=== PATIENT | male | born 1995 | race Caucasian/White ===

== ENCOUNTER 2019-01-14 10:08 | Inpatient (IN) | payer OTHER ==
[~2019-01-14] VITALS: Ht 185.4 cm; Wt 71.6 kg
[~2019-01-14 10:08] MED LIST: no meds
[2019-01-14] MEDS ORDERED: LACTATED RINGER'S 1,000 ML IV STA (10:44)
[2019-01-14] MEDS ORDERED: IBUPROFEN 600 MG TAB PO ONE (11:00)
[2019-01-14] MEDS ORDERED: CLINDAMYCIN 900 MG/D5W (PMX) 50 ML IVPB SCH (11:00)
[2019-01-14] MEDS ORDERED: VANCOMYCIN 1 GM (PMX) 250 ML IVPB ONE (11:00)
[2019-01-14] MEDS ORDERED: HYDROCODONE/APAP (5/325) TAB PO PRN (13:30)
[2019-01-14] MEDS ORDERED: VANCOMYCIN IV PER PHARMACY XX SCH (13:30)
[2019-01-14] MEDS ORDERED: NACL 0.9% 3 ML SYG IV SCH (13:30)
[2019-01-14] MEDS ORDERED: KETOROLAC 15 MG INJ IV STA (13:37)
--- NOTE | 2019-01-14 13:41 | ERD ---
ER Documentation Chief Complaint Chief Complaint various skin lesions/itchiness ; swelling/cellulitis @ right leg; unkempt HPI This is a 23-year-old man with an active history of injected heroin abuse and methamphetamine abuse presenting with multiple skin ulcers as well as redness, pain, swelling to the lower extremities bilaterally. Patient states his leg pain and redness began a few days ago after he aggressively scratched his legs. He denies injecting in his lower extremities. Patient denies fevers or chills, no vomiting or diarrhea, no chest pain or shortness of breath ROS All systems reviewed and are negative except as per history of present illness. Medications Home Meds No Active Prescriptions or Reported Meds Allergies Allergies: Coded Allergies: avocado (Verified Allergy, Unknown, THROAT SWELLING SHORT OF BREATH, 01/14/19) peanut (Verified Allergy, Unknown, THROAT SWELLING SHORT OF BREATH, 01/14/19) PMhx/Soc Drug abuse History of Surgery: No Hx Neurological Disorder: No Hx Respiratory Disorders: No Hx Cardiac Disorders: No Hx Psychiatric Problems: No Hx Miscellaneous Medical Probl: Yes (Heroin use) Hx Alcohol Use: Yes (Occassionally) Hx Substance Use: Yes (Heroin) Hx Tobacco Use: Yes (Half pack per day) Smoking Status: Current every day smoker FmHx Family History: No diabetes Physical Exam Vitals Vital Signs Date Temp Pulse Resp B/P (MAP) Pulse Ox O2 O2 Flow FiO2 Time Delivery Rate 01/14/19 76 20 100/52 100 Room Air 13:13 (68) 01/14/19 107 20 112/64 100 Room Air 11:19 (80) 01/14/19 99.4 11:03 01/14/19 99.4 126 24 122/66 100 10:13 (84) Physical Exam Const: Well-developed will nourished man, appears intoxicated, afebrile HEENT: Excoriated skin to the bridge of the nose, no cervical spine deformity, no Kernig sign Resp: Clear to auscultation bilaterally Cardio: Tachycardic and regular Skin: Multiple superficial skin ulcerations to the upper extremities bilaterally. Patient also has indurated erythematous skin to the anterior lower extremities bilaterally concerning for cellulitis Ext: Distal pulses equal bilateral, 1+ pitting edema in the lower extremities bilaterally, calves symmetrical Neur: Awake and alert x3, no focal deficits or facial asymmetry Psych: Normal Mood and Affect Result Diagram: 01/14/19 1055 01/14/19 1055 Results 24 hrs Laboratory Tests Test 01/14/19 10:55 White Blood Count 11.5 10^3/ul Red Blood Count 3.85 10^6/ul Hemoglobin 10.5 g/dl Hematocrit 33.6 % Mean Corpuscular Volume 87.3 fl Mean Corpuscular Hemoglobin 27.3 pg Mean Corpuscular Hemoglobin Concent 31.3 g/dl Red Cell Distribution Width 13.7 % Platelet Count 322 10^3/UL Mean Platelet Volume 8.9 fl Immature Granulocytes % 0.300 % Neutrophils % 82.1 % Lymphocytes % 12.2 % Monocytes % 4.4 % Eosinophils % 0.7 % Basophils % 0.3 % Nucleated Red Blood Cells % 0.0 /100WBC Immature Granulocytes # 0.040 10^3/ul Neutrophils # 9.4 10^3/ul Lymphocytes # 1.4 10^3/ul Monocytes # 0.5 10^3/ul Eosinophils # 0.1 10^3/ul Basophils # 0.0 10^3/ul Nucleated Red Blood Cells # 0.0 10^3/ul Sodium Level 140 mmol/L Potassium Level 3.7 mmol/L Chloride Level 104 mmol/L Carbon Dioxide Level 27 mmol/L Anion Gap 9 Blood Urea Nitrogen 11 mg/dl Creatinine 0.81 mg/dl Est Glomerular Filtrat Rate mL/min > 60 mL/min Glucose Level 93 mg/dl Calcium Level 9.2 mg/dl Current Medications Medications Dose Sig/Marilin Start Time Status Last (Trade) Ordered Route PRN Stop Time Admin Dose Reason Admin Vancomycin 250 ml @ ONCE ONCE 01/14/19 DC 01/14/19 HCl 125 mls/hr IVPB 11:00 12:03 01/14/19 12:59 Clindamycin 50 ml @ 50 ONCE IVPB 01/14/19 DC 01/14/19 HCl/ mls/hr 11:00 11:04 Dextrose 01/14/19 11:59 Ibuprofen 600 mg ONCE ONCE 01/14/19 DC 01/14/19 (Motrin) PO 11:00 11:03 01/14/19 11:01 Lactated 1,000 ml @ Q1H STAT 01/14/19 DC 01/14/19 Ringer's 1,000 mls/hr IV 10:44 11:03 01/14/19 11:43 IV Flush 3 ml PER 01/14/19 (NS 3 ml) PROTOCOL IV 13:30 1 tab Q6H PRN 01/14/19 Acetaminophen PO .MOD PAIN 13:30 / 4-6 Hydrocodone Bitart ([place] (5/325)) Vancomycin VANCOMYCIN PER 01/14/19 UNV HCl (Vanco PER PHARMACY PROTOCOL XX 13:30 Iv Per Pharmacy) Procedures/MDM IV line was established patient was placed on counseling services manager rhythm strip revealed a sinus rhythm at about narrow complex tachycardia at 110 bpm with upright P and T waves. Patient was afebrile I administered 1 L LR IV, ibuprofen 600 mg p.o., clindamycin 900 mg IV, vancomycin 1 g IV. CBC and electrolytes were unremarkable. Patient will be admitted to [facility] for continued IV antibiotic therapy Departure Diagnosis: Primary Impression: Drug abuse Additional Impressions: Bilateral lower leg cellulitis Formication Condition: EDDIE Zhou MD Jan 14, 2019 13:41
[2019-01-14] MEDS ORDERED: KETOROLAC 15 MG INJ IV PRN (14:00)
[2019-01-14] MEDS ORDERED: VANCOMYCIN 500 MG (PMX) 100 ML IVPB ONE (14:00)
[2019-01-14] MEDS ORDERED: IOHEXOL 300MG/ML 150 ML BTL ONE (14:03)
[2019-01-14] MEDS ORDERED: SOD CHLORIDE 0.9% 100 ML ONE (14:03)
--- NOTE | 2019-01-14 15:05 | CONS ---
Consultation Date/Type/Reason Admit Date/Time Initial Consult Date Date/Time of Note DATE: 01/14/19 TIME: 15:04 24 HR Interval Summary Free Text/Dictation 23 y/o M with hx of IV drug abuse and Exam/Review of Systems Exam Vitals Vital Signs Date Temp Pulse Resp B/P (MAP) Pulse Ox O2 O2 Flow FiO2 Time Delivery Rate 01/14/19 99.0 79 18 110/63 100 Room Air 14:52 (79) Results Result Diagram: 01/14/19 1055 01/14/19 1055 Results 24hrs Laboratory Tests Test 01/14/19 10:44 01/14/19 10:55 C-Reactive Protein 6.1 H Procalcitonin 1.28 H White Blood Count 11.5 H Red Blood Count 3.85 L Hemoglobin 10.5 L Hematocrit 33.6 L Mean Corpuscular Volume 87.3 Mean Corpuscular Hemoglobin 27.3 L Mean Corpuscular Hemoglobin Concent 31.3 L Red Cell Distribution Width 13.7 Platelet Count 322 Mean Platelet Volume 8.9 Immature Granulocytes % 0.300 Neutrophils % 82.1 H Lymphocytes % 12.2 L Monocytes % 4.4 Eosinophils % 0.7 Basophils % 0.3 Nucleated Red Blood Cells % 0.0 Immature Granulocytes # 0.040 H Neutrophils # 9.4 H Lymphocytes # 1.4 Monocytes # 0.5 Eosinophils # 0.1 Basophils # 0.0 Nucleated Red Blood Cells # 0.0 Sodium Level 140 Potassium Level 3.7 Chloride Level 104 Carbon Dioxide Level 27 Anion Gap 9 Blood Urea Nitrogen 11 Creatinine 0.81 Est Glomerular Filtrat Rate mL/min > 60 Glucose Level 93 Calcium Level 9.2 Medications Medication Current Medications IV Flush (NS 3 ml) 3 ml PER PROTOCOL IV ; Start 01/14/19 at 13:30 Acetaminophen/ Hydrocodone Bitart ([place] (5/325)) 1 tab Q6H PRN PO .MOD PAIN 4- 6; Start 01/14/19 at 13:30 Vancomycin HCl (Vanco Iv Per Pharmacy) VANCOMYCIN PER PHARMACY PER PROTOCOL XX ; Start 01/14/19 at 13:30 Methadone HCl (Methadone) 5 mg Q8H PO ; Start 01/14/19 at 14:00 Ketorolac Tromethamine (Toradol) 15 mg Q6H PRN IV PAIN; Start 01/14/19 at 14:00; Stop 01/17/19 at 13:59 Vancomycin/Sodium Chloride 250 ml @ 83.333 mls/ hr Q8H IVPB ; Start 01/14/19 at 23:00 NE SHERWOOD DPM Jan 14, 2019 15:05
--- NOTE | 2019-01-14 15:24 | CONS ---
Assessment/Plan Assessment/Plan Assessment/Plan (Daily) B/l lower extremity non pressure ulcerations B/l lower extremity cellulitis Concern for abscess formation IV drug abuser with possible skin popping lesions Homelessness Plan Patient is being admitted for further monitoring. CT ordered of bilateral lower extremity by primary team and awaiting result to rule out any abscess formations. Patient will likely need an operative debridement. Patient will need wound cultures, arterial studies, and wound care. Patient would benefit from case management involvement due to homelessness and IV drug abuse. Continue with IV abx and provided nursing instructions with dressings. Will continue to monitor while in house. Consultation Date/Type/Reason Admit Date/Time Date/Time of Note DATE: 01/14/19 TIME: 15:12 Hx of Present Illness 23 y/o M with hx of IV drug abuse and homelessness presents to the ER with multiple ulceration sites to his bilateral lower extremities with erythema predominantly to his lower legs. Patient states the issues started a several days ago. He reports that he was scratching them too much and they became ulcerated. Patient denies injected to his lower extremities. Patient also states that he last used heroin this morning and injected to his right arm. Reports pain to the shins and wound sites. Denies additional constitutional symptoms. ROS negative except for HPI Past Medical History IV drug abuse, homeless Home Meds No Active Prescriptions or Reported Meds Medications Current Medications IV Flush (NS 3 ml) 3 ml PER PROTOCOL IV ; Start 01/14/19 at 13:30 Acetaminophen/ Hydrocodone Bitart ([place] (5/325)) 1 tab Q6H PRN PO .MOD PAIN 4- 6; Start 01/14/19 at 13:30 Vancomycin HCl (Vanco Iv Per Pharmacy) VANCOMYCIN PER PHARMACY PER PROTOCOL XX ; Start 01/14/19 at 13:30 Methadone HCl (Methadone) 5 mg Q8H PO ; Start 01/14/19 at 14:00 Ketorolac Tromethamine (Toradol) 15 mg Q6H PRN IV PAIN; Start 01/14/19 at 14:00; Stop 01/17/19 at 13:59 Vancomycin/Sodium Chloride 250 ml @ 83.333 mls/ hr Q8H IVPB ; Start 01/14/19 at 23:00 Allergies: Coded Allergies: avocado (Verified Allergy, Unknown, THROAT SWELLING SHORT OF BREATH, 01/14/19) peanut (Verified Allergy, Unknown, THROAT SWELLING SHORT OF BREATH, 01/14/19) Past Surgical History nose surgery Family History Significant Family History: no pertinent family hx Social History Alcohol Use: occasionally Smoking Status: Current every day smoker Drug Use: heroin Exam/Review of Systems Exam Vitals Vital Signs Date Temp Pulse Resp B/P (MAP) Pulse Ox O2 O2 Flow FiO2 Time Delivery Rate 01/14/19 99.0 79 18 110/63 100 Room Air 14:52 (79) Exam DP pulses palpable bilateral, unable to palpate PT pulses Protective sensations intact 2+ pitting edema b/l lower extremity Multiple open lesion sites appear to be skin popping lesions Diffuse erythema noted to bilateral lower legs Pain on palpation to the wound sites of bilateral lower legs Right anterior leg ulcer 1.5 x 1.5 x 0.3cm fibrotic wound bed, there is some purulent drainage, unable to probe to bone Left anterior leg ulcer 2 x 1.5 x 0.3cm fibrotic wound bed, there is some purulent drainage, unable to probe to bone Results Result Diagram: 01/14/19 1055 01/14/19 1055 Results 24hrs Laboratory Tests Test 01/14/19 10:44 01/14/19 10:55 C-Reactive Protein 6.1 H Procalcitonin 1.28 H White Blood Count 11.5 H Red Blood Count 3.85 L Hemoglobin 10.5 L Hematocrit 33.6 L Mean Corpuscular Volume 87.3 Mean Corpuscular Hemoglobin 27.3 L Mean Corpuscular Hemoglobin Concent 31.3 L Red Cell Distribution Width 13.7 Platelet Count 322 Mean Platelet Volume 8.9 Immature Granulocytes % 0.300 Neutrophils % 82.1 H Lymphocytes % 12.2 L Monocytes % 4.4 Eosinophils % 0.7 Basophils % 0.3 Nucleated Red Blood Cells % 0.0 Immature Granulocytes # 0.040 H Neutrophils # 9.4 H Lymphocytes # 1.4 Monocytes # 0.5 Eosinophils # 0.1 Basophils # 0.0 Nucleated Red Blood Cells # 0.0 Sodium Level 140 Potassium Level 3.7 Chloride Level 104 Carbon Dioxide Level 27 Anion Gap 9 Blood Urea Nitrogen 11 Creatinine 0.81 Est Glomerular Filtrat Rate mL/min > 60 Glucose Level 93 Calcium Level 9.2 Medications Medication Current Medications IV Flush (NS 3 ml) 3 ml PER PROTOCOL IV ; Start 01/14/19 at 13:30 Acetaminophen/ Hydrocodone Bitart ([place] (5/325)) 1 tab Q6H PRN PO .MOD PAIN 4- 6; Start 01/14/19 at 13:30 Vancomycin HCl (Vanco Iv Per Pharmacy) VANCOMYCIN PER PHARMACY PER PROTOCOL XX ; Start 01/14/19 at 13:30 Methadone HCl (Methadone) 5 mg Q8H PO ; Start 01/14/19 at 14:00 Ketorolac Tromethamine (Toradol) 15 mg Q6H PRN IV PAIN; Start 01/14/19 at 14:00; Stop 01/17/19 at 13:59 Vancomycin/Sodium Chloride 250 ml @ 83.333 mls/ hr Q8H IVPB ; Start 01/14/19 at 23:00 NE SHERWOOD DPM Jan 14, 2019 15:23
--- NOTE | 2019-01-14 15:36 | HP ---
Date/Time of Note Date/Time of Note DATE: 01/14/19 TIME: 15:33 Assessment/Plan VTE Prophylaxis SCD applied (from Nsg): Yes Pharmacological prophylaxis: heparin Lines/Catheters IV Catheter Type (from Nrsg): Saline Lock Assessment/Plan Hospital Course Somewhat uncomfortable appearing mildly unkept Calm pleasant appropriate Regular rate and rhythm Breathing comfortably with clear lungs Skin exam is notable for various eschars throughout his arms and legs. There is a large area of cellulitic change with open pus drainage on his bilateral anterior shins which are warm and erythematous and quite painful to touch Assessment and plan: This is a 23-year-old male with a history of opiate use disorder and IV drug use who presents with bilateral cellulitis of his legs with concern for underlying abscess -We will perform imaging of his legs to rule out abscess or osteomyelitis -We will continue vancomycin IV and consult infectious diseases and podiatry if needed Opiate use disorder: -We will start on methadone maintenance therapy and uptitrate as needed -Check HIV and hepatitis serologies Result Diagram: 01/14/19 1055 01/14/19 1055 Results 24hrs Laboratory Tests Test 01/14/19 10:44 01/14/19 10:55 Erythrocyte Sedimentation Rate 75 H C-Reactive Protein 6.1 H Procalcitonin 1.28 H White Blood Count 11.5 H Red Blood Count 3.85 L Hemoglobin 10.5 L Hematocrit 33.6 L Mean Corpuscular Volume 87.3 Mean Corpuscular Hemoglobin 27.3 L Mean Corpuscular Hemoglobin Concent 31.3 L Red Cell Distribution Width 13.7 Platelet Count 322 Mean Platelet Volume 8.9 Immature Granulocytes % 0.300 Neutrophils % 82.1 H Lymphocytes % 12.2 L Monocytes % 4.4 Eosinophils % 0.7 Basophils % 0.3 Nucleated Red Blood Cells % 0.0 Immature Granulocytes # 0.040 H Neutrophils # 9.4 H Lymphocytes # 1.4 Monocytes # 0.5 Eosinophils # 0.1 Basophils # 0.0 Nucleated Red Blood Cells # 0.0 Sodium Level 140 Potassium Level 3.7 Chloride Level 104 Carbon Dioxide Level 27 Anion Gap 9 Blood Urea Nitrogen 11 Creatinine 0.81 Est Glomerular Filtrat Rate mL/min > 60 Glucose Level 93 Calcium Level 9.2 HPI/ROS Admit Date/Time Admit Date/Time Hx of Present Illness Is a 23-year-old male with opiate use disorder who presents with painful bilateral lower extremities Patient is notably covered and what appear to be skin injection sites though he stresses that he only shoots up into his upper extremities and never his lower extremities. Regardless over the previous days he has developed clear infections of his bilateral legs mostly involving his shins. Very painful matos its him from walking. Both sites on both shins are expressing pus ROS Constitutional: no complaints, improved Eyes: no complaints ENT: no complaints Respiratory: no complaints Cardiovascular: no complaints Gastrointestinal: no complaints Genitourinary: no complaints Musculoskeletal: no complaints Skin: no complaints Neurologic: no complaints Endocrine: no complaints Lymphatic: no complaints Psychological: no complaints, nl mood/affect Immunologic: no complaints PMH/Family/Social Past Medical History Medical History: no pertinent history Medications Current Medications IV Flush (NS 3 ml) 3 ml PER PROTOCOL IV ; Start 01/14/19 at 13:30 Acetaminophen/ Hydrocodone Bitart ([place] (5/325)) 1 tab Q6H PRN PO .MOD PAIN 4- 6; Start 01/14/19 at 13:30 Vancomycin HCl (Vanco Iv Per Pharmacy) VANCOMYCIN PER PHARMACY PER PROTOCOL XX ; Start 01/14/19 at 13:30 Methadone HCl (Methadone) 5 mg Q8H PO ; Start 01/14/19 at 14:00 Ketorolac Tromethamine (Toradol) 15 mg Q6H PRN IV PAIN; Start 01/14/19 at 14:00; Stop 01/17/19 at 13:59 Vancomycin/Sodium Chloride 250 ml @ 83.333 mls/ hr Q8H IVPB ; Start 01/14/19 at 23:00 Coded Allergies: avocado (Verified Allergy, Unknown, THROAT SWELLING SHORT OF BREATH, 01/14/19) peanut (Verified Allergy, Unknown, THROAT SWELLING SHORT OF BREATH, 01/14/19) Past Surgical History Past Surgical Hx: no surgical history Family History Significant Family History: no pertinent family hx Social History Alcohol Use: none Smoking Status: Current every day smoker Drug Use: none, heroin Exam/Review of Systems Vital Signs Vitals Vital Signs Date Temp Pulse Resp B/P (MAP) Pulse Ox O2 O2 Flow FiO2 Time Delivery Rate 01/14/19 99.0 79 18 110/63 100 Room Air 14:52 (79) GUY ANGLIN MD Jan 14, 2019 15:36
[2019-01-14 16:20] VITALS: Ht 185.4 cm; Wt 71.6 kg
[2019-01-14] MEDS: CEFEPIME 1GM/50 ML (PMX) 50 ML IVPB SCH (16:44)
[2019-01-14] MEDS: METHADONE 5 MG TAB PO SCH ×2 (16:44→21:05)
[2019-01-14 16:52] VITALS: BP 107/61; PULSE 97
--- NOTE | 2019-01-14 17:17 | CONS ---
DATE OF ADMISSION: 01/14/2019 DATE OF CONSULTATION: 01/14/2019 TYPE OF CONSULTATION: Infectious disease. REASON FOR CONSULTATION: Antibiotic management. HISTORY OF PRESENT ILLNESS: Vahid Howard is a 23-year-old male with an active history of inj ecting heroin and heroin abuse as well as methamphetamine abuse. He presents now with multiple skin ulcers as well as redness, pain, swelling to the lower extremities bilaterally. Patient states his l eg and pain and redness began a few days ago after he aggressively scratched his legs. He denies inj ecting into his lower extremities. The patient denies fever or chills. He has no chest pain or shor tness of breath. PAST MEDICAL HISTORY: Essentially as outlined. FAMILY HISTORY: Noncontributory. SOCIAL HISTORY: He drinks alcohol occasionally. He abuses heroin and methamphetamine. He smokes murry lf pack of cigarettes per day, currently an everyday smoker. ANCILLARY LABORATORY DATA: On admission, his white count is 11.5, H and H of 10.5 and 33.6, platelet count of 322,000, he has 82% neutrophils. BUN and creatinine 11/0.81, glucose random 93. IMPRESSION AND PLAN: The patient was seen by Dr. Mcallister in the Emergency Room. He notes bilatera l lower extremity non-pressure ulcerations bilateral lower extremity cellulitis, concern for abscess formation, IV drug abuser with possible skin popping lesions and homelessness. A CT scan of the lowe r extremities was ordered. Bilateral anterior predominant soft tissue edema with overlying skin thic kening suggesting cellulitis. No discrete abscess was detected. No evidence of soft tissue gas. No acute osseous abnormality. The patient was started on vancomycin. He received some clindamycin, bu t at this point, he is on vancomycin alone. He was seen by the hospitalist, Dr. Lewis he will chec k an HIV and hepatitis serologies, started methadone maintenance therapy. We are going to add ceftri axone to his regimen. I will dictate my findings to Dr. Mcallister and to the hospitalists. We may a dd cefepime for better coverage. Dictated By: TONIO MOYER MD, JD/NTS Conf#: [id number] DID#: [id number] CC: GUY LEWIS MD;*EndCC*
[2019-01-14 20:00] VITALS: BP 117/66; PULSE 79; RESP 18
[2019-01-14] MEDS ORDERED: PENDING SANTYL ORDER FOR WOUND CARE XX PRN (22:00)
[2019-01-14] MEDS: VANCOMYCIN 1.25 GM/NS 250 ML 250 ML IVPB SCH (23:29)
[2019-01-15] VITALS (11 sets, daily range): BP systolic 112–142; BP diastolic 58–105; PULSE 50–89; RESP 16–23
[2019-01-15] MEDS: CEFEPIME 1GM/50 ML (PMX) 50 ML IVPB SCH ×3 (02:28→21:19)
[2019-01-15] MEDS: METHADONE 5 MG TAB PO SCH ×3 (05:56→21:23)
[2019-01-15] MEDS: VANCOMYCIN 1.25 GM/NS 250 ML 250 ML IVPB SCH ×3 (05:57→22:29)
[2019-01-15] MEDS ORDERED: PROPOFOL 60 ML ONE (08:17)
[2019-01-15] MEDS ORDERED: MIDAZOLAM 1 MG/ML 2 ML INJ ONE (08:17)
[2019-01-15] MEDS ORDERED: LIDOCAINE 2% (SDV) 5 ML INJ ONE (08:18)
[2019-01-15] MEDS ORDERED: GLYCOPYRROLATE 0.4 MG INJ ONE (08:18)
[2019-01-15] MEDS ORDERED: KETAMINE (50 MG/ML) 10 ML VIAL ONE (08:18)
[2019-01-15] MEDS ORDERED: POLYMYXIN/BACITRACIN 1L IRRIG ONE (08:36)
--- NOTE | 2019-01-15 09:10 | PREAC ---
Date/Time of Note Date/Time of Note DATE: 01/15/19 TIME: 09:07 Anesthesia Eval and Record Evaluation Time Pre-Procedure Interview DATE: 01/15/19 TIME: 09:07 Age 23 Sex male NPO: 8 hrs Preoperative diagnosis bilateral cellulitis of legs Planned procedure bilateral lower extremity debridement Past Medical History Past Medical History: Includes (Heroin and meth abuse) Pulm: Smoking Hx (1/2 pack/day) Surgery & Anesthesia Issues No known issue Meds Anticoagulation: No Beta Darrion within 24 hr: No Reason Beta Darrion not given: Pt. not on B-Darrion Reported Medications [no meds] No Conflict Check 01/14/19 Current Medications IV Flush (NS 3 ml) 3 ml PER PROTOCOL IV ; Start 01/14/19 at 13:30 Acetaminophen/ Hydrocodone Bitart ([place] (5/325)) 1 tab Q6H PRN PO .MOD PAIN 4- 6; Start 01/14/19 at 13:30 Vancomycin HCl (Vanco Iv Per Pharmacy) VANCOMYCIN PER PHARMACY PER PROTOCOL XX ; Start 01/14/19 at 13:30 Methadone HCl (Methadone) 5 mg Q8H PO Last administered on 01/15/19at 05:56; Admin Dose 5 MG; Start 01/14/19 at 14:00 Ketorolac Tromethamine (Toradol) 15 mg Q6H PRN IV PAIN; Start 01/14/19 at 14:00; Stop 01/17/19 at 13:59 Vancomycin/Sodium Chloride 250 ml @ 83.333 mls/ hr Q8H IVPB Last administered on 01/15/19at 05:57; Admin Dose 83.333 MLS/HR; Start 01/14/19 at 23:00 Cefepime HCl 50 ml @ 100 mls/hr Q12 IVPB Last administered on 01/15/19at 02:28; Admin Dose 100 MLS/HR; Start 01/14/19 at 16:00 Miscellaneous Information (Pending [facility] Order For Wound Care) This patient murry... PRN PRN XX WOUND CARE; Start 01/14/19 at 22:00 Nicotine (Nicoderm 21 Mg/ 24hr) 1 patch DAILY TRANSDERM ; Start 01/15/19 at 09:00 Meds reviewed: Yes Allergies Coded Allergies: avocado (Verified Allergy, Unknown, THROAT SWELLING SHORT OF BREATH, 01/14/19) peanut (Verified Allergy, Unknown, THROAT SWELLING SHORT OF BREATH, 01/14/19) Allergies Reviewed: Yes Labs/Studies Labs Reviewed: Reviewed by anesthesiologist Result Diagram: 01/15/19 0436 01/15/19 0436 Laboratory Tests 01/15/19 04:36 test: N/A Pre-procedure Exam Last vitals Vital Signs Date Temp Pulse Resp B/P (MAP) Pulse Ox O2 O2 Flow FiO2 Time Delivery Rate 01/15/19 98.1 73 16 124/72 99 08:21 (89) 01/14/19 Room Air 20:00 Airway: Adequate mouth opening, Adequate thyromental dist Mallampati: Mallampati II Teeth: Normal Lung: Normal Heart: Normal ASA Physical Status ASA physical status: 2 Emergency: None Planned Anesthetic General/MAC: MAC Pre-operative Attestations Prior to commencing anesthesia and surgery, the patient was re-evaluated, there was verification of: *The patient's identity *The results of appropriate recent lab work and preoperative vital signs *The above evaluation not changing prior to induction *Anesthetic plan, risk benefits, alternative and complications discussed with patient/family; questions answered; patient/family understands, accepts and wishes to proceed. RICHA LY Jan 15, 2019 09:10
--- NOTE | 2019-01-15 09:17 | HPN ---
Date/Time of Note Date/Time of Note DATE: 01/15/19 TIME: 09:16 Interval H&P Admission Note Pt. seen H&P reviewed: No system changes NE SHERWOOD DPM Jan 15, 2019 09:17
[2019-01-15] MEDS ORDERED: hydrALAzine 20 MG INJ IV PRN (09:30)
[2019-01-15] MEDS ORDERED: LABETALOL HCL 20MG INJ IV PRN (09:30)
[2019-01-15] MEDS ORDERED: ALBUTEROL 0.083% (NEB) 2.5 MG/3 ML AMP HHN PRN (09:30)
[2019-01-15] MEDS ORDERED: ACETAMINOPHEN 1000MG/100ML IV 100 ML IVPB ONE (09:30)
[2019-01-15] MEDS ORDERED: ONDANSETRON 4 MG INJ IV PRN (09:30)
[2019-01-15] MEDS ORDERED: DIPHENHYDRAMINE 50 MG INJ IV PRN (09:30)
[2019-01-15] MEDS ORDERED: traMADol 50 MG TAB PO PRN (09:30)
[2019-01-15] MEDS ORDERED: KETOROLAC 30 MG INJ IV PRN (09:30)
[2019-01-15] MEDS ORDERED: METOCLOPRAMIDE 10 MG INJ IV PRN (09:30)
[2019-01-15] MEDS ORDERED: EPHEDrine 25 MG/5 ML SYG IV PRN (09:30)
--- NOTE | 2019-01-15 10:12 | SIPON ---
Date/Time of Note Date/Time of Note DATE: 01/15/19 TIME: 10:12 Operative Report Preoperative Diagnosis B/l lower extremity non pressure ulcerations B/l lower extremity cellulitis IV drug abuser with possible skin popping lesions bilateral lower extremity pustules Homelessness Postoperative Diagnosis B/l lower extremity non pressure ulcerations B/l lower extremity cellulitis IV drug abuser with possible skin popping lesions bilateral lower extremity pustules Homelessness Operation/Procedure Performed excisional debridement bilateral lower extremity Surgeon see signature line chemical laboratory assistant none Anesthesia: MAC Estimated blood loss: 0 - 10 ml's Transfusion Required none Specimen bilateral lower extremity wound cultures Grafts/Implants none Complications none NE SHERWOOD DPM Jan 15, 2019 10:12
--- NOTE | 2019-01-15 10:14 | OPR ---
Date/Time of Note Date/Time of Note DATE: 01/15/19 TIME: 10:14 Operative Report Preoperative Diagnosis B/l lower extremity non pressure ulcerations B/l lower extremity cellulitis IV drug abuser with possible skin popping lesions bilateral lower extremity pustules Homelessness Postoperative Diagnosis B/l lower extremity non pressure ulcerations B/l lower extremity cellulitis IV drug abuser with possible skin popping lesions bilateral lower extremity pustules Homelessness Operation/Procedure Performed excisional debridement bilateral lower extremity Surgeon see signature line [employer] Of [employer] none Anesthesia Type: MAC Estimated Blood Loss: 0 - 10 ml's Transfusion none Specimen excisional debridement bilateral lower extremity Grafts/Implants none Complications none Indications 23 y/o M patient with bilateral lower extremity wound sites with multiple skin pustules and anterior hernandez wound sites. Patient is IV heroin abuser and denies skin popping. Reports scratching to his lower extremities which caused the wound sites. Patient amenable to surgical debridement. Addressed all of the patient's questions and concerns. No promises or guarantees were given. Procedure Description Patient was brought into the OR and placed in the supine position. Bilateral lower extremities were scrubbed, prepped, and draped in the usual aseptic fashion. A formal time out was conducted Attention was directed to the left lower extremity. There is an ulceration to the mid anterior tibial region which measured 2.5 x 2 x 0.2cm with granular wound bed no purulence was appreciated, there is surrounding erythema. Unable to probe to bone. There were multiple pustules noted to the left lower extremity with purulent drainage wound cultures were obtained. Excisional debridement of ulceration and pustule sites performed of skin/subQ with a curette. Fibrotic tissue and purulent drainage was removed. 5cm2 of area was debrided. Copious antibiotic saline irrigation was used. Next, attention was directed to the right lower extremity. There is an ulceration to the mid anterior tibial region which measured 2 x 1.5 x 0.2cm with granular wound bed no purulence was appreciated, there is surrounding erythema. Unable to probe to bone. There were multiple pustules noted to the rightt lower extremity with purulent drainage wound cultures were obtained. Excisional debridement of ulceration and pustule sites performed of skin/subQ with a curette. Fibrotic tissue and purulent drainage was removed. 3cm2 of area was debrided. Copious antibiotic saline irrigation was used. Betadine 4x4 gauze, kerlix and jah wrap applied to bilateral lower extremities. Patient was transferred to PACU with vital signs stable and neurovascular status intact. Less than 20cm2 of area was debrided NE SHERWOOD DPM Jan 15, 2019 10:14
--- NOTE | 2019-01-15 10:16 | PAC ---
Date/Time of Note Date/Time of Note DATE: 01/15/19 TIME: 10:15 Post-Anesthesia Notes Post-Anesthesia Note Last documented vital signs Vital Signs Date Temp Pulse Resp B/P Pulse Ox O2 O2 Flow FiO2 Time (MAP) Delivery Rate 01/15/19 98.1 98.8 73 65 16 17 124/72 99 100 face 08:21 101 (89) 134 mask 8L 0 /89 01/14/19 Room Air 20:00 Activity: WNL Respiratory function: WNL Cardiovascular function: WNL Mental status: Baseline Pain reasonably controlled: Yes Hydration appropriate: Yes Nausea/Vomiting absent: Yes RICHA LY Jan 15, 2019 10:16
[2019-01-15] MEDS: NICOTINE (21 MG/24 HR) PATCH TRANSDERM SCH (11:13)
--- NOTE | 2019-01-15 18:18 | PN ---
Date/Time of Note Date/Time of Note DATE: 01/15/19 TIME: 18:17 Assessment/Plan VTE Prophylaxis Risk score (from Ns)>0 risk: 0 SCD applied (from Ns): No SCD contraindicated: low risk/ambulating Pharmacological prophylaxis: NA/contraindicated Pharm contraindication: low risk/ambulating Lines/Catheters IV Catheter Type (from Nrs): Saline Lock Assessment/Plan Hospital Course Assessment and plan 1. Bilateral lower extremity cellulitis status post debridement, stable, discharge home when okay with podiatry 2. Chronic substance abuse/IVDA status post counseling 3. Tobacco abuse status post counseling offered patch Subjective: Events noted Objective: Vital signs stable Physical exam No pallor adenopathy Regular no mrg Clear Benign No edema, wounds dressed. Result Diagram: 01/15/19 0436 01/15/19 0436 Results 24hrs Laboratory Tests Test 01/15/19 04:27 01/15/19 04:36 01/15/19 07:59 01/15/19 14:28 Erythrocyte 49 H Sedimentation Rate C-Reactive Protein 7.8 H White Blood Count 10.5 Red Blood Count 3.91 L Hemoglobin 10.6 L Hematocrit 34.3 L Mean Corpuscular 87.7 Volume Mean Corpuscular 27.1 L Hemoglobin Mean Corpuscular 30.9 L Hemoglobin Concent Red Cell 13.7 Distribution Width Platelet Count 297 Mean Platelet Volume 9.6 Immature 0.500 H Granulocytes % Neutrophils % 78.6 H Lymphocytes % 15.6 Monocytes % 4.1 Eosinophils % 0.8 Basophils % 0.4 Nucleated Red Blood 0.0 Cells % Immature 0.050 H Granulocytes # Neutrophils # 8.3 H Lymphocytes # 1.6 Monocytes # 0.4 Eosinophils # 0.1 Basophils # 0.0 Nucleated Red Blood 0.0 Cells # Sodium Level 139 Potassium Level 4.0 Chloride Level 105 Carbon Dioxide Level 26 Anion Gap 8 Blood Urea Nitrogen 10 Creatinine 0.67 Est Glomerular > 60 Filtrat Rate mL/min Glucose Level 97 Hemoglobin A1c 5.4 Calcium Level 8.8 Total Bilirubin 0.5 Direct Bilirubin 0.00 Indirect Bilirubin 0.5 Aspartate Amino 20 Transf (AST/SGOT) Alanine 21 Aminotransferase (AL T/SGPT) Alkaline Phosphatase 89 Total Protein 7.6 Albumin 3.4 Globulin 4.20 H Albumin/Globulin 0.80 Ratio Hepatitis B Surface NEGATIVE Antigen Hepatitis B Core NEGATIVE Total Antibody Hepatitis C Antibody NEGATIVE Procalcitonin 0.95 H Vancomycin Level 11.0 Trough Exam/Review of Systems Exam Vitals Vital Signs Date Temp Pulse Resp B/P (MAP) Pulse Ox O2 O2 Flow FiO2 Time Delivery Rate 01/15/19 97.9 56 16 113/71 100 14:00 (85) 01/15/19 Room Air 10:45 Intake and Output 01/14/19 01/14/19 01/15/19 1515:00 23:00 07:00 IntakeIntake Total 550 ml 583 ml BalanceBalance 550 ml 583 ml Results Results 24hrs Laboratory Tests Test 01/15/19 04:27 01/15/19 04:36 01/15/19 07:59 01/15/19 14:28 Erythrocyte 49 H Sedimentation Rate C-Reactive Protein 7.8 H White Blood Count 10.5 Red Blood Count 3.91 L Hemoglobin 10.6 L Hematocrit 34.3 L Mean Corpuscular 87.7 Volume Mean Corpuscular 27.1 L Hemoglobin Mean Corpuscular 30.9 L Hemoglobin Concent Red Cell 13.7 Distribution Width Platelet Count 297 Mean Platelet Volume 9.6 Immature 0.500 H Granulocytes % Neutrophils % 78.6 H Lymphocytes % 15.6 Monocytes % 4.1 Eosinophils % 0.8 Basophils % 0.4 Nucleated Red Blood 0.0 Cells % Immature 0.050 H Granulocytes # Neutrophils # 8.3 H Lymphocytes # 1.6 Monocytes # 0.4 Eosinophils # 0.1 Basophils # 0.0 Nucleated Red Blood 0.0 Cells # Sodium Level 139 Potassium Level 4.0 Chloride Level 105 Carbon Dioxide Level 26 Anion Gap 8 Blood Urea Nitrogen 10 Creatinine 0.67 Est Glomerular > 60 Filtrat Rate mL/min Glucose Level 97 Hemoglobin A1c 5.4 Calcium Level 8.8 Total Bilirubin 0.5 Direct Bilirubin 0.00 Indirect Bilirubin 0.5 Aspartate Amino 20 Transf (AST/SGOT) Alanine 21 Aminotransferase (AL T/SGPT) Alkaline Phosphatase 89 Total Protein 7.6 Albumin 3.4 Globulin 4.20 H Albumin/Globulin 0.80 Ratio Hepatitis B Surface NEGATIVE Antigen Hepatitis B Core NEGATIVE Total Antibody Hepatitis C Antibody NEGATIVE Procalcitonin 0.95 H Vancomycin Level 11.0 Trough Medications Medication Current Medications IV Flush (NS 3 ml) 3 ml PER PROTOCOL IV ; Start 01/14/19 at 13:30 Acetaminophen/ Hydrocodone Bitart ([place] (5/325)) 1 tab Q6H PRN PO .MOD PAIN 4- 6; Start 01/14/19 at 13:30 Vancomycin HCl (Vanco Iv Per Pharmacy) VANCOMYCIN PER PHARMACY PER PROTOCOL XX ; Start 01/14/19 at 13:30 Methadone HCl (Methadone) 5 mg Q8H PO Last administered on 01/15/19at 13:49; Admin Dose 5 MG; Start 01/14/19 at 14:00 Ketorolac Tromethamine (Toradol) 15 mg Q6H PRN IV PAIN; Start 01/14/19 at 14:00; Stop 01/17/19 at 13:59 Vancomycin/Sodium Chloride 250 ml @ 83.333 mls/ hr Q8H IVPB Last administered on 01/15/19at 15:11; Admin Dose 83.333 MLS/HR; Start 01/14/19 at 23:00 Cefepime HCl 50 ml @ 100 mls/hr Q12 IVPB Last administered on 01/15/19at 02:28; Admin Dose 100 MLS/HR; Start 01/14/19 at 16:00 Miscellaneous Information (Pending [facility] Order For Wound Care) This patient murry... PRN PRN XX WOUND CARE; Start 01/14/19 at 22:00 Nicotine (Nicoderm 21 Mg/ 24hr) 1 patch DAILY TRANSDERM Last administered on 01/15/19at 11:13; Admin Dose 1 PATCH; Start 01/15/19 at 09:00 KATIE STEIN MD Jan 15, 2019 18:18
[2019-01-15] MEDS ORDERED: IBUPROFEN 800 MG TAB PO PRN (18:30)
--- NOTE | 2019-01-15 18:59 | PN ---
DATE: 01/15/2019 SUBJECTIVE: The patient is sleeping, looks comfortable, no fevers overnight. WBC 10.5, neutrophils 78.6, BUN 10, creatinine 0.67. Procalcitonin 0.95. MICROBIOLOGY: Wound cultures are pending. DIAGNOSTICS: Lower extremity CT revealed no abscess. Bilateral anterior predominance soft tissue ed gio suggestive of cellulitis, no acute osseous abnormality. Extremity venous study revealed no DVT. ALLERGIES: NONE to antibiotics. ANTIMICROBIALS: The patient is on: 1. Vancomycin. 2. Cefepime. PHYSICAL EXAMINATION: GENERAL: Well-developed, young man who is awake, in no distress, who is sleeping, arousable, in no d istress. HEENT: Head atraumatic, normocephalic. NECK: Supple. CHEST: Rise symmetrical. Breath sounds diminished to bases. HEART: S1, S2. ABDOMEN: Soft, bowel sounds present. EXTREMITIES: Bilaterally Jerod wrapped. ASSESSMENT: 1. Bilateral lower extremities, non-pressure ulcerations with cellulitis, status post incision and d rainage bilaterally. 2. Intravenous drug use with probable skin popping lesions. 3. Homelessness. PLAN: The patient remains stable postoperatively. Continue present care and antibiotics and await f or wound cultures. Dictated By: AUBREE DINERO CASH APPLICATIONS CLERK for TONIO MOYER MD NI/NTS Conf#: [id number] DID#: [id number] CC: GUY ANGLIN MD;*EndCC*
[2019-01-16 02:53] VITALS: BP 128/79; PULSE 74; RESP 22
[2019-01-16] MEDS: METHADONE 5 MG TAB PO SCH ×2 (06:35→14:02)
[2019-01-16] MEDS: VANCOMYCIN 1.25 GM/NS 250 ML 250 ML IVPB SCH ×2 (07:05→14:19)
[2019-01-16 08:00] VITALS: BP 123/84; PULSE 75; RESP 20
[2019-01-16] MEDS: NICOTINE (21 MG/24 HR) PATCH TRANSDERM SCH (08:54)
[2019-01-16] MEDS: CEFEPIME 1GM/50 ML (PMX) 50 ML IVPB SCH (10:16)
[2019-01-16] MEDS ORDERED: DAKINS 0.0125%(1/40) 473 ML SOLUTION TP SCH (11:00)
--- NOTE | 2019-01-16 13:16 | CONS ---
Consultation Date/Type/Reason Admit Date/Time Jan 14, 2019 at 12:04 Initial Consult Date SUBJECTIVE: The patient is awake, resting in bed, looks comfortable, no fevers overnight. VS: stable T: 97.8 LABS: Reviewed. MICROBIOLOGY: Wound cultures are pending. DIAGNOSTICS: Lower extremity CT revealed no abscess. Bilateral anterior predominance soft tissue edema suggestive of cellulitis, no acute osseous abnormality. Extremity venous study revealed no DVT. ALLERGIES: NONE to antibiotics. ANTIMICROBIALS: The patient is on: 1. Vancomycin. 2. Cefepime. PHYSICAL EXAMINATION: GENERAL: Well-developed, young man who is awake, in no distress, who is sleeping, arousable, in no distress. HEENT: Head atraumatic, normocephalic. NECK: Supple. CHEST: Rise symmetrical. Breath sounds diminished to bases. HEART: S1, S2. ABDOMEN: Soft, bowel sounds present. EXTREMITIES: Bilaterally Jerod wrapped. ASSESSMENT: 1. Bilateral lower extremities, non-pressure ulcerations with cellulitis, status post incision and drainage bilaterally. 2. Intravenous drug use with probable skin popping lesions. 3. Homelessness. PLAN: The patient remains stable postoperatively. Continue current antibiotics. Local wound care. Await for wound cultures. Date/Time of Note DATE: 01/16/19 TIME: 13:13 Exam/Review of Systems Exam Vitals Vital Signs Date Temp Pulse Resp B/P (MAP) Pulse Ox O2 O2 Flow FiO2 Time Delivery Rate 01/16/19 97.8 75 20 123/84 100 08:00 (97) 01/15/19 Room Air 10:45 Intake and Output 01/15/19 01/15/19 01/16/19 1515:00 23:00 07:00 IntakeIntake Total 750 ml 780 ml 1750 ml OutputOutput Total 2602 ml 1750 ml 1800 ml BalanceBalance -1852 ml -970 ml -50 ml Results Result Diagram: 01/15/19 0436 01/15/19 0436 Results 24hrs Laboratory Tests Test 01/15/19 14:28 Vancomycin Level Trough 11.0 Medications Medication Current Medications IV Flush (NS 3 ml) 3 ml PER PROTOCOL IV ; Start 01/14/19 at 13:30 Acetaminophen/ Hydrocodone Bitart ([place] (5/325)) 1 tab Q6H PRN PO .MOD PAIN 4- 6; Start 01/14/19 at 13:30 Vancomycin HCl (Vanco Iv Per Pharmacy) VANCOMYCIN PER PHARMACY PER PROTOCOL XX ; Start 01/14/19 at 13:30 Methadone HCl (Methadone) 5 mg Q8H PO Last administered on 01/16/19at 06:35; Admin Dose 5 MG; Start 01/14/19 at 14:00 Vancomycin/Sodium Chloride 250 ml @ 83.333 mls/ hr Q8H IVPB Last administered on 01/16/19at 07:05; Admin Dose 83.333 MLS/HR; Start 01/14/19 at 23:00 Cefepime HCl 50 ml @ 100 mls/hr Q12 IVPB Last administered on 01/16/19at 10:16; Admin Dose 100 MLS/HR; Start 01/14/19 at 16:00 Miscellaneous Information (Pending [facility] Order For Wound Care) This patient murry... PRN PRN XX WOUND CARE; Start 01/14/19 at 22:00 Nicotine (Nicoderm 21 Mg/ 24hr) 1 patch DAILY TRANSDERM Last administered on 01/16/19at 08:54; Admin Dose 1 PATCH; Start 01/15/19 at 09:00 Ibuprofen (Motrin) 800 mg Q6H PRN PO MILD PAIN LEVEL 1-3; Start 01/15/19 at 18:30 Sodium Hypochlorite ([place]ak[place] Diluted ()) 1 applic DAILY TP Last administered on 01/16/19at 11:27; Admin Dose 1 APPLIC; Start 01/16/19 at 11:00 KYARA VALENZUELA Jan 16, 2019 13:16
[2019-01-16 14:00] VITALS: BP 103/57; PULSE 74; RESP 18
--- NOTE | 2019-01-17 14:46 | DS ---
Date/Time of Note Date/Time of Note DATE: 01/17/19 TIME: 14:43 Discharge Summary Admission/Discharge Info Admit Date/Time Jan 14, 2019 at 12:04 Discharge Date/Time Jan 16, 2019 at 17:15 Patient Condition: Fair Consults [facility] Social service Procedures I&D cellulitis Venous ultrasound no acute process Imaging lower extremities Hx of Present Illness 22-year-old gentleman admitted with bilateral cellulitis lower extremities Hospital Course Hospital course Assessment and plan 1. Bilat lower ext cellulitis sp debridement, stable, discharge planned, but left AMA. 2. Chronic substance abuse- meth, heroin, crack; IVDA sp counseling. Met with social service. Offered assistance for rehab but declined. 3. Tobacco abuse status post counseling offered patch 4. Homelessness. Met with social service but declined further assistance. 5. Major depression adjustment disorder. , homeless. Refused further assistance. Home Meds Reported Medications [no meds] No Conflict Check 01/14/19 Primary Care Provider Care Physician No Primary Time spent on discharge: < 30 minutes KATIE STEIN MD Jan 17, 2019 14:46
== END 2019-01-16 17:15 | disposition left against medical advice (07) | DRG 571 ==
LOC: EDBD 10:08 → E/R 10:08 → PP2 12:04 → SUATTDRO 13:25 → PP2 15:24
PROVIDERS: ADMIT Internal Medicine; ATTEND Internal Medicine
PROC: 0JBN0ZZ Excision of Right Lower Leg Subcutaneous Tissue and Fascia, Open Approach (ICD-10-PCS; 2019-01-15)
PROC: 0JBP0ZZ Excision of Left Lower Leg Subcutaneous Tissue and Fascia, Open Approach (ICD-10-PCS; principal; 2019-01-15 09:00)
DX: L03.116 Cellulitis of left lower limb (principal); L97.829 Non-pressure chronic ulcer of other part of left lower leg with unspecified severity; L97.819 Non-pressure chronic ulcer of other part of right lower leg with unspecified severity; L03.115 Cellulitis of right lower limb; L08.9 Local infection of the skin and subcutaneous tissue, unspecified; F11.10 Opioid abuse, uncomplicated; F15.10 Other stimulant abuse, uncomplicated; F17.210 Nicotine dependence, cigarettes, uncomplicated; F32.9 Major depressive disorder, single episode, unspecified; F43.20 Adjustment disorder, unspecified; Z59.0 Homelessness
CPT/HCPCS: 36415; 73700; 80048; 80053; 80202; 83036; 84145; 85025; 85651; 86140; 86704; 86709; 86803; 87070; 87075; 87102; 87340; 87536; 93970; 96374; 96375; J0131; J0692; J1885; J2250; J2405; J3370; J7120; Q9967